=== PATIENT | female | born 1970 | race Caucasian/White ===

== ENCOUNTER 2016-05-19 07:41 | Day surgery (SDC) | payer OTHER ==
[2016-05-19] VITALS (15 sets, daily range): BP systolic 113–141; BP diastolic 68–87; PULSE 78–107; RESP 14–20; Ht 170.2 cm; Wt 101.2 kg
[~2016-05-19] VITALS: Ht 170.2 cm; Wt 101.2 kg
[~2016-05-19 07:41] MED LIST: CLON-412 PO; CYCL-319 PO; HYDR-3720 PO; LIDOCAINE 2% (SDV) 5 ML INJ ONE; LORA-441 PO; PROM25TA14 PO; PROPOFOL 200 MG INJ ONE; ROCURONIUM 50 MG INJ ONE; SERT50TA PO; SUCCINYLCHOLINE CHLORIDE 100 MG/5 ML SYG IV ONE
[2016-05-19] MEDS ORDERED: CLON-412 PO (08:34)
[2016-05-19] MEDS ORDERED: SIMV20TA PO (08:35)
[2016-05-19] MEDS ORDERED: GLYCOPYRROLATE 1 MG INJ ONE (09:48)
[2016-05-19] MEDS ORDERED: PROPOFOL 20 ML ONE (09:48)
[2016-05-19] MEDS ORDERED: ROPIVACAINE 0.5 % 30 ML VIAL ONE ×2 (09:48→10:08)
[2016-05-19] MEDS ORDERED: ROCURONIUM 50 MG INJ ONE ×2 (09:48→11:18)
[2016-05-19] MEDS ORDERED: NEOSTIGMINE 3 MG/3 ML SYRINGE ONE ×2 (09:48→12:55)
[2016-05-19] MEDS ORDERED: SUCCINYLCHOLINE CHLORIDE 100 MG/5 ML SYG IV ONE (09:48)
[2016-05-19] MEDS ORDERED: LIDOCAINE 2% (SDV) 5 ML INJ ONE (09:48)
[2016-05-19] MEDS ORDERED: EPINEPHrine 1 MG/ML 30 ML INJ ONE (10:09)
[2016-05-19] MEDS ORDERED: POVIDONE IODINE 10% 28.4 GM OINT ONE (10:09)
[2016-05-19] MEDS ORDERED: SOD CHLORIDE 0.9% 1,000 ML IV SCH (10:21)
--- NOTE | 2016-05-19 10:21 | HPN ---
Date/Time of Note Date/Time of Note DATE: 05/19/16 TIME: 10:21 Interval H&P Admission Note Pt. seen H&P reviewed: No system changes MATT GENAO MD May 19, 2016 10:21
[2016-05-19] MEDS ORDERED: HYDROmorphONE 1 MG/ML SYG IV PRN (10:30)
[2016-05-19] MEDS ORDERED: ONDANSETRON 4 MG INJ IV PRN ×2 (10:30→13:00)
[2016-05-19] MEDS ORDERED: morphine 2 MG INJ IV PRN (10:30)
[2016-05-19] MEDS ORDERED: OXYCODONE/ACETAMINOPHEN (5/325) TAB PO PRN ×2 (10:30)
[2016-05-19] MEDS ORDERED: VANCOMYCIN 1 GM (PMX) 250 ML ONE ×2 (10:31→10:33)
[2016-05-19] MEDS ORDERED: ONDANSETRON 4 MG INJ ONE (10:56)
[2016-05-19] MEDS ORDERED: LABETALOL HCL 20MG INJ ONE (10:56)
[2016-05-19] MEDS ORDERED: METOCLOPRAMIDE 10 MG INJ ONE (10:56)
[2016-05-19] MEDS ORDERED: FENTAnyl 50 MCG/ML VIAL ONE (11:40)
[2016-05-19] MEDS ORDERED: GLYCOPYRROLATE 0.4 MG INJ ONE (12:55)
[2016-05-19] MEDS ORDERED: METOCLOPRAMIDE 10 MG INJ IV PRN (13:00)
[2016-05-19] MEDS ORDERED: MIDAZOLAM 1 MG/ML 2 ML INJ IV PRN (13:00)
[2016-05-19] MEDS ORDERED: DIPHENHYDRAMINE 50 MG INJ IV PRN (13:00)
[2016-05-19] MEDS ORDERED: HYDROmorphONE (0.2 MG/ML) 10ML SYG IV PRN ×2 (13:00)
[2016-05-19] MEDS ORDERED: hydrALAzine 20 MG INJ IV PRN (13:00)
[2016-05-19] MEDS ORDERED: LABETALOL HCL 20MG INJ IV PRN (13:00)
[2016-05-19] MEDS ORDERED: FENTAnyl 50 MCG/ML VIAL IV PRN ×2 (13:00)
[2016-05-19] MEDS ORDERED: MEPERIDINE 25 MG INJ IV PRN (13:00)
--- NOTE | 2016-05-19 14:43 | OPR ---
DATE OF OPERATION: 05/19/2016 PREOPERATIVE DIAGNOSES: 1. Status post right shoulder arthroscopy with debridement, rotator cuff repair, and subacromial de compression. 2. Severe pain in the right acromioclavicular joint secondary degenerative joint disease. POSTOPERATIVE DIAGNOSES: 1. Status post arthroscopy, right shoulder, with debridement, subacromial decompression, and rotato r cuff repair. 2. Degenerative joint disease, acromioclavicular joint. 3. Extensive amount of scarring and fibrosis of the shoulder. 4. Tearing of the labrum anteriorly and posteriorly. 5. 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 OPERATIONS PERFORMED: 1. Arthroscopy, right shoulder. 2. Extensive debridement of the shoulder including debridement of the labrum, chondroplasty of the humeral head, and removal extensive amount of scar tissue. 3. Ankush excision 1.2 cm distal clavicle. SURGEON: Matt Jeffrey MD IT DATA ARCHITECT: Doyle Dumont MD ANESTHESIA: General with a supraclavicular block. DESCRIPTION OF PROCEDURE: The patient taken to the operating room and placed in supine position. S atisfactory supraclavicular block was given, satisfactory general anesthesia was administered, 1 gra m of vancomycin given intravenously. The patient was rolled in the left lateral decubitus position, secured with beanbag, kidney rest, axillary roll arms were carefully padded. Exam under anesthesia revealed essentially full range of motion with good stability. The right shoulder was prepped and draped in the usual manner, suspended in traction. Posterior and anterior portals were made. A lateral portal was also made. The biceps was relatively smooth and glistening. There was fraying of the posterior labrum and posterior recess. The glenoid had some m inimal chondromalacia. Rotator cuff repair completely intact and healed nicely. The humeral head h ad some grade II chondromalacia. There was scarring along the superior, middle, and inferior glenoh umeral ligaments and subscapularis. We have a lot of scar tissue and synovitis in the shoulder. Sh aver was inserted, partial synovectomy performed. The labrum was debrided. All adhesions and scar tissue were removed. Chondroplasty performed along the humeral head. After complete debridement of the shoulder, attention turned to the subacromial space. Bursoscopy, subtotal bursectomy was performed. Extensive amount of scarring and adhesions from the previous surgery were noted in the subacromial space. The subacromial space was cleared out of all debris and adhesions and synovitis. The rotator cuff repair looked to be intact. The anterior acro mion had a previous acromioplasty and was nice and flat and nothing needed to be done on that. The AC joint was exposed using a shaver and electrosurgery, coagulating the bleeders as encountered. Excision of the distal clavicle was performed with a shaver and a bur until 1.2 cm were excised. We smoothed the dorsal surface superiorly of the distal clavicle and smoothed it inferiorly as well. It had a slight angle to the clavicle more inferiorly. After complete excision of distal clavicle everything looked good. I felt this would alleviate the patient's pain. The shoulder was irrigate d clear. Wounds were closed with 3-0 black nylon and Steri-Strips. Compression dressing and UltraS ling were applied. The patient brought to recovery in stable condition. Interprocedure sponge and needle count was correct. The patient tolerated procedure well. Dictated By: MATT PATTERSON/JAKOB Conf#: [id number] DID#: [id number]
== END 2016-05-19 15:45 | disposition home or self-care (01) ==
LOC: SDS 07:41
PROVIDERS: ATTEND Orthopaedic Surgery
DX: M75.101 Unspecified rotator cuff tear or rupture of right shoulder, not specified as traumatic (principal); M19.011 Primary osteoarthritis, right shoulder; M94.211 Chondromalacia, right shoulder; E66.9 Obesity, unspecified; Z68.34 Body mass index [BMI] 34.0-34.9, adult
CPT/HCPCS: 29823; 29824; 84703; J0171; J0330; J2405; J2710; J2765; J2795; J3010; J3370